=== PATIENT | female | born 1995 | race Caucasian/White ===

== ENCOUNTER 2017-07-01 10:55 | Emergency (ER) | payer OTHER ==
--- NOTE | 2017-07-01 12:29 | ER Document Report ---
ED GI/ - General Chief Complaint: Vaginal Bleeding Stated Complaint: VAGINAL BLEEDING Time Seen by Provider: 07/01/17 11:41 Mode of Arrival: Ambulatory Information source: Patient Notes: 21-year-old female presents to ED for complaint of abnormal vaginal bleeding. She states she had her IUD placed in on April. She states she had some breakthrough bleeding which stopped about a week ago and then she started with some severe bleeding. She states she is going through tampons about every 20 minutes. She states she is concerned that she is . She would like to be tested for that. She states she has an appointment to take her IUD out on Monday she is alert oriented pupils equal and react to light speaking in full sentences. TRAVEL OUTSIDE OF THE [place] IN LAST 30 DAYS: No - HPI Patient complains to provider of: Pelvic pain, Vaginal bleeding Timing/Duration: Persistent Quality of pain: Cramping Severity at maximum: Mild Severity in ED: Mild Pain Level: 2 Location: Pelvis, Vaginal Vaginal bleeding (Compared to normal period): Heavier LMP: iup Associated symptoms: Other - vaginal bleeding Exacerbated by: Denies Relieved by: Denies Similar symptoms previously: Yes Recently seen / treated by doctor: Yes - Related Data Allergies/Adverse Reactions: latex Allergy (Verified 07/01/17 10:55) tramadol Allergy (Verified 07/01/17 10:55) Home Medications: celexa Past Medical History - General Information source: Patient - Social History Smoking Status: Never Smoker Cigarette use (# per day): No Chew tobacco use (# tins/day): No Smoking Education Provided: No Frequency of alcohol use: None Drug Abuse: None Lives with: Family Family History: Reviewed & Not Pertinent Patient has suicidal ideation: No Patient has homicidal ideation: No - Past Medical History Cardiac Medical History: Reports: Hx Hypertension - Preeclampsia both pregnancies Pulmonary Medical History: Reports: None EENT Medical History: Reports: None Neurological Medical History: Reports: None Endocrine Medical History: Reports: None Renal/ Medical History: Reports: Hx Pelvic Inflammatory Disease Malignancy Medical History: Reports: None GI Medical History: Reports: None Musculoskeltal Medical History: Reports Hx Musculoskeletal Trauma Skin Medical History: Reports None Psychiatric Medical History: Reports: Hx Anxiety, Hx Depression Traumatic Medical History: Reports: Hx Fractures - Foot Infectious Medical History: Reports: None Past Surgical History: Reports: Hx Section, Hx Orthopedic Surgery - left foot - Immunizations Immunizations up to date: Yes Review of Systems - Review of Systems Constitutional: No symptoms reported EENT: No symptoms reported Cardiovascular: No symptoms reported Respiratory: No symptoms reported Gastrointestinal: No symptoms reported Genitourinary: No symptoms reported Female Genitourinary: Heavy/abnormal periods, Vaginal bleeding, Other - Pain with IUD Musculoskeletal: No symptoms reported Skin: No symptoms reported Hematologic/Lymphatic: No symptoms reported Neurological/Psychological: No symptoms reported -: Yes All other systems reviewed and negative Physical Exam - Vital signs Vitals: Temp Pulse Resp BP Pulse Ox 98.5 F 85 18 126/84 H 99 07/01/17 10:57 07/01/17 10:57 07/01/17 10:57 07/01/17 10:57 07/01/17 10:57 Interpretation: Normal - General General appearance: Appears well, Alert - HEENT Head: Normocephalic, Atraumatic Eyes: Normal Pupils: PERRL - Respiratory Respiratory status: No respiratory distress Chest status: Nontender Breath sounds: Normal Chest palpation: Normal - Cardiovascular Rhythm: Regular Heart sounds: Normal auscultation Murmur: No - Abdominal Inspection: Normal Distension: No distension Bowel sounds: Normal Tenderness: Nontender Organomegaly: No organomegaly - Genitourinary External exam: Normal Vaginal bleeding: Moderate Bimanuel exam: Other - IUD strings visualized will get ultrasound to ensure placement of IUD. No: Cervical motion tender, Adnexal mass - Back Back: Normal, Nontender - Extremities General upper extremity: Normal inspection, Nontender, Normal color, Normal ROM , Normal temperature General lower extremity: Normal inspection, Nontender, Normal color, Normal ROM , Normal temperature, Normal weight bearing. No: Lb's sign - Neurological Neuro grossly intact: Yes Cognition: Normal Orientation: AAOx4 Naty Coma Scale Eye Opening: Spontaneous Naty Coma Scale Verbal: Oriented [place] Coma Scale Motor: Obeys Commands [place] Coma Scale Total: 15 Speech: Normal Motor strength normal: LUE, RUE, LLE, RLE Sensory: Normal - Psychological Associated symptoms: Normal affect, Normal mood - Skin Skin Temperature: Warm Skin Moisture: Dry Skin Color: Normal Course - Re-evaluation Re-evalutation: 07/01/17 15:51 Ultrasound showed that the IUD was in the cervix. IUD was removed with both arms intact. Patient tolerated procedure well. Patient was instructed that she cannot use tampons for the next week no sexual intercourse for 3 days and to follow-up with [employer] for her left ovarian cyst. Patient was treated with ibuprofen and given a prescription for ibuprofen. Patient verbalized that her was planning to have a vasectomy as they already have 3 children. - Vital Signs Vital signs: Temp Pulse Resp BP Pulse Ox 98.2 F 84 16 129/78 H 97 07/01/17 14:58 07/01/17 14:58 07/01/17 14:58 07/01/17 14:58 07/01/17 14:58 Discharge - Discharge Clinical Impression: IUD in the cervix, Vaginal bleeding Condition: Stable Disposition: HOME, SELF-CARE Instructions: Use of Qiip-Lax-Gptgjth Ibuprofen ([facility]) Additional Instructions: VAGINAL BLEEDING: You are having an episode of abnormal bleeding. Causes of abnormal vaginal bleeding can include miscarriage or tubal , tumors such as cancer or benign fibroids, medication effects, or hormone imbalance. Testing can eliminate unsuspected , tumors, or infection as a cause. "Dysfunctional uterine bleeding" is due to hormone imbalance, and is especially common at times when the normal cycle is disturbed -- whether by recent , use of control pills or hormones, or impending menopause. If the bleeding is innocent, most commonly a short course of hormones is given to restore the uterus to normal. Sometimes, the normal menstrual cycle corrects itself naturally. Sometimes , brief hormone therapy, or even a D&C is required. Your physician will advise you. Treatment for anemia may be required if bleeding is severe. You should rest and avoid intercourse until the bleeding is controlled. Call the doctor or return for re-examination if you feel faint, have increasing pain, or have a major increase in the amount of bleeding. Ovarian Cyst Your examination shows the presence of an ovarian cyst. This is a ball of fluid attached to the ovary. Ovarian cysts in women of child-bearing age are usually innocent. However, the cyst may cause pain when it grows or bursts. An innocent ovarian cyst will usually go away by itself. When the cyst becomes painful, you should rest. Pain medication may be required. Some women find a hot water bottle soothing. The pain usually resolves within one or two days. After menopause, an ovarian cyst may mean a tumor, and requires more aggressive evaluation -- usually surgery is recommended to remove or biopsy the cyst. A very large cyst requires evaluation at any age. Most cysts (even the innocent ones) require follow-up examination. Call the doctor or return at any time if the pain increases significantly, if you become faint, or if you experience vaginal bleeding. Acetaminophen Acetaminophen may be taken for pain relief or fever control. It's much safer than aspirin, offering a wider range of "safe" dosages. It is safe during . Some brand names are Tylenol, Panadol, Datril, Anacin 3, Tempra, and Liquiprin. Acetaminophen can be repeated every four hours. The following are maximum recommended dosages: WEIGHT Dose Drops Elixir Chewable( 80mg) (LBS.) drprs=droppers tsp=teaspoon 6 40 mg .4 ml (1/2) 6-11 80 mg .8 ml (full) 1/2 tsp 1 tab 12-16 120 mg 1 1/2 drprs 3/4 tsp 1 1/2 tabs 17-23 160 mg 2 drprs 1 tsp 2 tabs 24-30 240 mg 3 drprs 1 1/2 tsp 3 tabs 30-35 320 mg 2 tsp 4 tabs 36-41 360 mg 2 1/4 tsp 4 1 /2 tabs 42-47 400 mg 2 1/2 tsp 5 tabs 48-53 480 mg 3 tsp 6 tabs 54-59 520 mg 3 1/4 tsp 6 1 /2 tabs 60-64 560 mg 3 1/2 tsp 7 tabs 65-70 600 mg 3 3/4 tsp 7 1 /2 tabs 71-76 640 mg 4 tsp 8 tabs 77-82 720 mg 4 1/2 tsp 9 tabs 83-88 800 mg 5 tsp 10 tabs >89 pounds or adults 650 mg to 900 mg Acetaminophen can be repeated every four hours. Maximum daily dose not to exceed 4000 mg. These maximum recommended dosages are slightly higher than the dosages written on the product container, but these dosages are very safe and well below the toxic dosage for acetaminophen. Your IUD was in the cervix and has been removed. Please do not put any tampons in your vagina for at least a week. You may continue to have vaginal bleeding for several days after I have removed the IUD. No sexual intercourse for at least 3 days. Remember that now you can get because years source of control has been removed. Need to follow-up with your [employer] because you do have a 5 cm ovarian cyst. FOLLOW-UP CARE: If you have been referred to a physician for follow-up care, call the physician s office for an appointment as you were instructed or within the next two days. If you experience worsening or a significant change in your symptoms (very heavy bleeding with large clots of blood, passage of tissue, more severe abdominal / pelvic pain or cramping, feeling faint or severe weakness, fever, etc.), notify the physician immediately or return to the Emergency Department at any time for re-evaluation. OBSTETRIC-GYNECOLOGIC (OB-ELECT[employer]ICIAN [employer]ATION [employer]PER[employer]OR) [facility] [place]: [facility] [address] [place] [address] [phone] Prescriptions: Ibuprofen 800 mg PO Q8HP PRN #20 tablet PRN Reason: Forms: Elevated Blood Pressure
[2017-07-01 13:19] LABS: APPEARANCE,URINE CLEAR; BILIRUBIN,URINE NEGATIVE (NEGATIVE); COLOR,URINE YELLOW; GLUCOSE, URINE NEGATIVE (NEGATIVE); KETONES,URINE NEGATIVE (NEGATIVE); LEUKOCYTE ESTERASE,URINE NEGATIVE (NEGATIVE); NITRITE,URINE NEGATIVE (NEGATIVE); PROTEIN,URINE NEGATIVE (NEGATIVE); URINE SPECIFIC GRAVITY 1.021; UROBILINOGEN,URINE NEGATIVE mg/dL (<2.0)
--- NOTE | 2017-07-01 13:46 | RADIOLOGY REPORT (SQ) ---
EXAM DESCRIPTION: U/S NON-OB PELVIS TV W/O DOP COMPLETED DATE/TIME: 07/01/2017 1:34 pm REASON FOR STUDY: Vaginal bleeding and IUD placement COMPARISON: None. TECHNIQUE: Dynamic and static grayscale images acquired of the pelvis via transvaginal approach and recorded on PACS. Additional selected color Doppler and spectral images recorded. LIMITATIONS: None. FINDINGS: UTERUS: Contour normal. No mass. ENDOMETRIAL STRIPE: No focal or generalized thickening. No masses. CERVIX: IUD appears to be located within the cervical canal. RIGHT OVARY AND DOPPLER: Ovary not visualized. LEFT OVARY AND DOPPLER: Normal size. Complex heterogenous cystic lesion measuring 5 cm. Normal arter ial vascular flow without evidence for torsion. FREE FLUID: None noted. OTHER: No other significant finding. MEASUREMENTS: UTERUS: 5.0 x 6.0 x 10.2 cm. ENDOMETRIAL STRIPE: 5 mm. RIGHT OVARY: Not visualized. LEFT OVARY: 4.9 x 4.9 x 5.6 cm. IMPRESSION: 1. 5 CM HETEROGENOUS COMPLEX CYSTIC LESION IN THE LEFT OVARY. THIS MOST LIKELY IS A HEMORRHAGIC CYST . RECOMMEND FOLLOW-UP ULTRASOUND IN 6-12 WEEKS. 2. IUD APPEARS TO BE LOCATED WITHIN THE CERVICAL CANAL. TECHNICAL DOCUMENTATION: JOB ID: [id number] [employer]- All Rights Reserved Rev-06/30 Reading location - IP/workstation name: [email or web address]
[2017-07-01] MEDS ORDERED: IBUPROFEN 800 MG TABLET PO ONE (14:35)
[2017-07-01 14:59] VITALS: BP 129/78
== END 2017-07-01 14:58 | disposition home or self-care (01) ==
LOC: ER 10:55
DX: N93.9 Abnormal uterine and vaginal bleeding, unspecified (principal); N83.202 Unspecified ovarian cyst, left side; R10.2 Pelvic and perineal pain; Z32.00 Encounter for pregnancy test, result unknown; Z30.432 Encounter for removal of intrauterine contraceptive device; Z91.040 Latex allergy status; Z88.5 Allergy status to narcotic agent; Z87.42 Personal history of other diseases of the female genital tract
CPT/HCPCS: 76830; 81001; 81025; 99284

== ENCOUNTER 2017-07-13 23:41 | Emergency (ER) | payer OTHER ==
--- NOTE | 2017-07-14 00:57 | ER Document Report ---
ED Medical Screen (RME) - General Chief Complaint: Pain With Urination Stated Complaint: BLADDER PAIN Time Seen by Provider: 07/14/17 00:55 Mode of Arrival: Ambulatory Information source: Patient Notes: 21-year-old female presents to ED for urinary symptoms. She states she has frequency urgency burning with urination and she also has blood in the urine. She states she just had twins in worry and she had an IUD placed at that time. Recently she came to the ED for vaginal bleeding that would not stop and she had her IUD removed at that time because it was not in the proper position. She states she has not had any sexual intercourse since then. She states the vaginal bleeding has stopped since then. I have greeted and performed a rapid initial assessment of this patient. A comprehensive ED assessment and evaluation of the patient, analysis of test results and completion of medical decision making process will be conducted by an additional ED providers. TRAVEL OUTSIDE OF THE [place] IN LAST 30 DAYS: No - Related Data Allergies/Adverse Reactions: latex Allergy (Verified 07/01/17 10:55) tramadol Allergy (Verified 07/01/17 10:55) Past Medical History - Past Medical History Cardiac Medical History: Reports: Hx Hypertension - Preeclampsia both pregnancies Renal/ Medical History: Reports: Hx Pelvic Inflammatory Disease. Denies: Hx Peritoneal Dialysis Musculoskeltal Medical History: Reports Hx Musculoskeletal Trauma Psychiatric Medical History: Reports: Hx Anxiety, Hx Depression Traumatic Medical History: Reports: Hx Fractures - Foot Past Surgical History: Reports: Hx Section, Hx Orthopedic Surgery - left foot - Immunizations Immunizations up to date: Yes Physical Exam - Vital signs Vitals: Temp Pulse Resp BP Pulse Ox 98.8 F 91 H 12 108/66 97 07/13/17 23:49 07/13/17 23:49 07/13/17 23:49 07/13/17 23:49 07/13/17 23:49 Course - Vital Signs Vital signs: Temp Pulse Resp BP Pulse Ox 98.8 F 91 H 12 108/66 97 07/13/17 23:49 07/13/17 23:49 07/13/17 23:49 07/13/17 23:49 07/13/17 23:49
[2017-07-14 01:36] LABS: APPEARANCE,URINE CLOUDY; BILIRUBIN,URINE NEGATIVE (NEGATIVE); COLOR,URINE YELLOW; GLUCOSE, URINE NEGATIVE (NEGATIVE); KETONES,URINE NEGATIVE (NEGATIVE); LEUKOCYTE ESTERASE,URINE LARGE (NEGATIVE); NITRITE,URINE NEGATIVE (NEGATIVE); PROTEIN,URINE 100 mg/dL (NEGATIVE); URINE SPECIFIC GRAVITY 1.027; UROBILINOGEN,URINE NEGATIVE mg/dL (<2.0)
[2017-07-14] MEDS ORDERED: PHENAZOPYRIDINE HCL 100 MG TABLET PO ONE (02:25)
[2017-07-14] MEDS ORDERED: SULFAMETHOXAZOLE/TRIMETHOPRIM 800-160 MG TABLET PO ONE (02:25)
[2017-07-14 02:58] VITALS: BP 110/68
--- NOTE | 2017-07-14 04:13 | ER Document Report ---
ED General - General Chief Complaint: Pain With Urination Stated Complaint: BLADDER PAIN Time Seen by Provider: 07/14/17 00:55 Mode of Arrival: Ambulatory TRAVEL OUTSIDE OF THE [place] IN LAST 30 DAYS: No - HPI Patient complains to provider of: Painful urination bladder pain Notes: Patient coming in for evaluation of dysuria. Patient has a history of UTIs at a young age. Patient states she has been on Macrobid multiple times. Patient denies any fevers chills flank pain abdominal pain diarrhea. Patient resting comfortably upon my evaluation. Patient states no bubble baths voiding after sex patient has never followed up with the urologist for her multiple UTIs in the past - Related Data Allergies/Adverse Reactions: latex Allergy (Verified 07/01/17 10:55) tramadol Allergy (Verified 07/01/17 10:55) Past Medical History - General Information source: Patient - Social History Smoking Status: Never Smoker Family History: Reviewed & Not Pertinent Patient has suicidal ideation: No Patient has homicidal ideation: No - Past Medical History Cardiac Medical History: Reports: Hx Hypertension - Preeclampsia both pregnancies Renal/ Medical History: Reports: Hx Pelvic Inflammatory Disease. Denies: Hx Peritoneal Dialysis Musculoskeltal Medical History: Reports Hx Musculoskeletal Trauma Psychiatric Medical History: Reports: Hx Anxiety, Hx Depression Traumatic Medical History: Reports: Hx Fractures - Foot Past Surgical History: Reports: Hx Section, Hx Orthopedic Surgery - left foot - Immunizations Immunizations up to date: Yes Review of Systems - Review of Systems Constitutional: No symptoms reported EENT: No symptoms reported Cardiovascular: No symptoms reported Respiratory: No symptoms reported Gastrointestinal: No symptoms reported Genitourinary: Dysuria Female Genitourinary: No symptoms reported Musculoskeletal: No symptoms reported Skin: No symptoms reported Hematologic/Lymphatic: No symptoms reported Neurological/Psychological: No symptoms reported Physical Exam - Vital signs Vitals: Temp Pulse Resp BP Pulse Ox 98.8 F 91 H 12 108/66 97 07/13/17 23:49 07/13/17 23:49 07/13/17 23:49 07/13/17 23:49 07/13/17 23:49 Interpretation: Normal - General General appearance: Appears well, Alert - HEENT Head: Normocephalic, Atraumatic Eyes: Normal Pupils: PERRL - Respiratory Respiratory status: No respiratory distress Chest status: Nontender Breath sounds: Normal Chest palpation: Normal - Cardiovascular Rhythm: Regular Heart sounds: Normal auscultation Murmur: No - Abdominal Inspection: Normal Distension: No distension Bowel sounds: Normal Tenderness: Nontender Organomegaly: No organomegaly - Back Back: Normal, Nontender - Extremities General upper extremity: Normal inspection, Nontender, Normal color, Normal ROM , Normal temperature General lower extremity: Normal inspection, Nontender, Normal color, Normal ROM , Normal temperature, Normal weight bearing. No: Lb's sign - Neurological Neuro grossly intact: Yes Cognition: Normal Orientation: AAOx4 Naty Coma Scale Eye Opening: Spontaneous Naty Coma Scale Verbal: Oriented [place] Coma Scale Motor: Obeys Commands Naty Coma Scale Total: 15 Speech: Normal Motor strength normal: LUE, RUE, LLE, RLE Sensory: Normal - Psychological Associated symptoms: Normal affect, Normal mood - Skin Skin Temperature: Warm Skin Moisture: Dry Skin Color: Normal Course - Re-evaluation Re-evalutation: 07/14/17 04:13 Urinalysis consistent with UTI urine culture was sent patient was started on Bactrim. Patient was encouraged follow-up with primary care physician for urology referral - Vital Signs Vital signs: Temp Pulse Resp BP Pulse Ox 98.9 F 89 18 110/68 98 07/14/17 02:42 07/14/17 02:42 07/14/17 02:42 07/14/17 02:42 07/14/17 02:42 - Laboratory Laboratory results interpreted by me: 07/14/17 01:15 Urine Protein 100 H Urine Blood SMALL H Ur Leukocyte Esterase LARGE H Urine Ascorbic Acid 40 H Discharge - Discharge Clinical Impression: UTI (urinary tract infection) Qualifiers: Urinary tract infection type: site unspecified Hematuria presence: without hematuria Qualified Code(s): N39.0 - Urinary tract infection, site not specified Condition: Good Disposition: HOME, SELF-CARE Instructions: Trimethoprim-Sulfa ([facility]), Urinary Tract Infection ([facility]) Additional Instructions: Your urinalysis today consistent with a urinary tract infection. We will send urine for culture. We will start you on a medication called Bactrim. Please take this to completion. Please also take Tylenol Motrin for pain control also recommend taking Azo or Pyridium prescribed. Prescriptions: Phenazopyridine HCl [Pyridium 200 mg Tablet] 200 mg PO TID #20 tablet Sulfamethoxazole/Trimethoprim [Bactrim Ds Tablet] 1 each PO BID #20 tablet Forms: Return to Work Referrals: ALYSON PATEL MD [NO LOCAL MD] - Follow up as needed PIETER ROLLE DO [AUTOMOTIVE POWER ELECTRONICS ENGINEER] - Follow up as needed
== END 2017-07-14 02:50 | disposition home or self-care (01) ==
LOC: ER 23:41
DX: N39.0 Urinary tract infection, site not specified (principal); Z91.040 Latex allergy status; Z88.5 Allergy status to narcotic agent
CPT/HCPCS: 99283; 87086; 81025; 87088; 81001; J3490

== ENCOUNTER → 2019-03-07 | Outpatient (CLI) | payer OTHER | LOC: OD 09:46 | PROVIDERS: ATTEND Family Medicine | DX: R68.89 Other general symptoms and signs (principal); Z83.49 Family history of other endocrine, nutritional and metabolic diseases | CPT/HCPCS: 36415; 84443 ==